=== PATIENT | female | born 1990 | race Caucasian/White ===

== ENCOUNTER 2022-06-02 10:35 | Day surgery (SDC) | payer BC, MEDICAID, SELFPAY ==
[2022-06-01 15:39] VITALS: BMI 21.4
[2022-06-02] VITALS (14 sets, daily range): BP systolic 118–161; BP diastolic 68–105; PULSE 14–76; RESP 14–18; TEMP 36.2–36.9; O2SAT 97–100
[2022-06-02 11:28] LABS: OR HCG Qualitative Urine Negative (Negative)
[2022-06-02] MEDS: scopolamine 1.5 Patch 1 PATCH TRANSDERMA (11:59)
[2022-06-02] MEDS: diphenhydrAMINE 50 mg/mL SDV 1mL 12.5 MG IVP (11:59)
[2022-06-02] MEDS: ondansetron 2 mg/ML SDV 2 mL 4 MG IVP (11:59)
[2022-06-02] MEDS: sodium chloride 0.9% 1,000 ML 30 ML IV (11:59)
--- NOTE | 2022-06-02 11:59 | ANES.PREANE2 ---
Pre-Anesthetic Assessment Height/Weight: Height 1.75 m Weight 65.771 kg Temp Pulse Resp BP Pulse Ox O2 Del Method 97.7 F 76 16 118/68 99 06/02/22 11:13 06/02/22 11:13 06/02/22 11:13 06/02/22 11:13 06/02/22 11:13 06/02/22 11:16 Preop Diagnosis: Symptomatic cholelithiasis Operation Date: 06/02/22 12:25 Proposed Procedures p Laparoscopic Cholecystectomy(Not Applicable) - Maury Duran DO Familial anesthetic complications: PONV Was Beta Hattie taken within 24 hours: N/A Was Clonidine taken within 24 hours: N/A Last intake: Intake Last Liquid Date 06/01/22 Last Liquid Time 20:30 Last Solid Date 06/01/22 Last Solid Time 17:00 Social Alcohol (socially) and Tobacco Exam alert and oriented x 3 Airway Submandibular: within normal limits Cervical ROM: within normal limits Mallampati: Class I Dentition: full History/ROS No significant history except as noted Pulmonary None reported CV/HEM None reported None reported Hepatic None reported GI Gastroesophageal Reflux Disease Metabolic None reported Musc/skel None reported Neuropsych None reported Anesthetic Plan ASA status: 2 Anesthesia: Anesthesia Evaluation and General (TIVA?) Risk of > 500 ml blood loss (7ml/kg in children): No Medications/Allergies Home Medications Medication Instructions Recorded Confirmed Last Taken Type tirzepatide 7.5 mg/0.5 mL 2.5 mg SUBCUT Q7D 05/17/22 06/01/22 05/27/22 History subcutaneous pen injector (Mounjaro) Allergies Allergy/AdvReac Type Severity Reaction Status Date / Time amoxicillin Allergy rash Verified 06/01/22 15:38 Sulfa (Sulfonamide Allergy rash Verified 06/01/22 15:38 Antibiotics) PFSH Anesthesia Surgical History Hx of breast augmentation Hx of gastric bypass Family History Denies family history of Anesthesia complication Social History Smoking and tobacco status: current every day smoker cigarettes Alcohol intake: current Alcohol intake frequency: holidays/special occasions only Data Anesthesia Cardiac Studies: No Data to Display
[2022-06-02] MEDS: vancomycin 1,000 MG in sodium chloride 0.9% 250 ML 250 MG IV (13:32)
--- NOTE | 2022-06-02 14:53 | W.PM.OPSUD ---
Surgery/Procedure H&P Update DATE OF PROCEDURE: June 02, 2022 DATE H&P PERFORMED: 05/17/22 H&P UPDATE INFORMATION: I have reviewed H&P completed within last 30 days, I have examined patient prior to procedure and No changes to prior documentation PREOP DIAGNOSIS: Symptomatic cholelithiasis PLANNED PROCEDURE: Operation Date: 06/02/22 12:25 Proposed Procedures p Laparoscopic Cholecystectomy(Not Applicable) - Maury Duran DO
[2022-06-02] MEDS: midazolam 1 mg/mL INJ 2 mL 2 MG IVP (14:57)
[2022-06-02] MEDS: lidocaine-epi 2% 20 mL INJ INJECTION (16:01)
--- NOTE | 2022-06-02 16:21 | P.OP_ITS ---
Operative Report Date of procedure: June 02, 2022 Pre-op diagnosis: Preop Diagnosis Symptomatic cholelithiasis Post-op diagnosis: same Procedure done: Laparoscopic cholecystectomy Specimens removed/disposition: Gallbladder Surgeon: Dr. Maury Duran DO Anesthesia: General Estimated blood loss (mL): 5 Complications: None apparent Brief History: This very pleasant 31-year-old female that came to my office with symptomatic cholelithiasis. Laparoscopic cholecystectomy was indicated. The risk and benefits were explained and documented. Procedure: Patient was wheeled into the operative room and placed on the OR table in a supine position. Abdomen was inspected prepped and draped in usual sterile fashion. Time-out was performed and all present were in agreement. A 15 blade scalp was used to make a stab incision in the left upper quadrant and intra- abdominal insufflation was achieved using a Veress needle. After localizing the tissue incisions were made and a 5 millimeter trocar was placed into the umbilicus as well as 2 in the right upper quadrant. A 12 millimeter trocar was placed in the epigastrium. Gallbladder was grasped and elevated. The triangle of Calot was carefully dissected using blunt dissection and electrocautery until the triangle of Calot clearly identified. The cystic duct was clipped proximally and double clipped distally. The duct was then ligated proximally. The cystic artery was doubly clipped and ligated. The gallbladder was then removed from the liver bed using electrocautery. The gallbladder was removed from the abdomen using an Endo-Catch bag through the epigastric incision. The liver bed was inspected and no bleeding was seen. The abdomen was irrigated and suctioned. All ports removed. Skin was washed and dried. Incisions were c losed with 4-0 Monocryl in a subcuticular interrupted fashion. Skin glue was applied. Patient tolerated the procedure well.
[2022-06-02] MEDS: hetastarch 30 GM/500 ML PREMIX IV (16:52)
[2022-06-02] MEDS: HYDROmorphone 1 mg/mL INJ 1 mL 0.5 MG IVP (17:10)
--- NOTE | 2022-06-02 17:20 | ANE.PACU2 ---
Inpatient post-anesthesia follow up: Airway intact: Yes Vital signs: Temperature 97.2 F Pulse Rate 57 Respiratory Rate 17 Blood Pressure 119/76 Pulse Oximetry 97 Oxygen Delivery Me thod Room Air Oxygen Flow Rate 6 Fraction of Inspir ed Oxygen Hydration adequate: Yes Nausea and vomiting: Yes Pain level: 3 Mental status: Baseline
[2022-06-02] MEDS: HYDROcodone-acetaminophen 5-325 mg Tablet 1 TAB PO (18:06)
== END 2022-06-02 18:20 | disposition home or self-care (01) ==
PROVIDERS: PCP Nurse Practitioner Family; Visit Provider Surgery
PROC: 0FT44ZZ Resection of Gallbladder, Percutaneous Endoscopic Approach (ICD-10-PCS; CPT 47562; principal; 2022-06-02 12:15)
DX: K81.1 Chronic cholecystitis (principal); K21.9 Gastro-esophageal reflux disease without esophagitis; F17.210 Nicotine dependence, cigarettes, uncomplicated; Z98.84 Bariatric surgery status; Z79.899 Other long term (current) drug therapy
CPT/HCPCS: 47562; 81025; 84703; 88304; J0330; J1100; J1170; J1200; J1790; J2250; J2405; J2704; J3010; J3370; J3490; J7030; J7050

== ENCOUNTER 2022-06-06 19:56 | Emergency (ER) | payer BC, MEDICAID, SELFPAY ==
[2022-06-06 20:04] VITALS: BP 110/55; PULSE 79; RESP 16; TEMP 36.2; O2SAT 100; BMI 23.6
[2022-06-06 20:49] LABS: Basophils % 0.3 %; Eosinophils # 0.3 10^3/uL (0.0-0.8); Eosinophils % 3.9 %; Hematocrit 28.1 % (37.0-47.0); Hemoglobin 9.1 g/dL (11.5-15.3); Lymphocytes # 2.2 10^3/uL (0.8-4.8); Lymphocytes % 32.7 %; Mean Corpuscular HGB Conc 32.4 g/dL (30.0-36.0); Mean Corpuscular Hemoglobin 31.3 pg (28.0-34.0); Mean Corpuscular Volume 96.6 fl (81-99); Mean Platelet Volume 10.8 fL (7.4-10.4); Monocytes # 0.5 10^3/uL (0.2-0.9); Monocytes % 7.2 %; Neutrophils # 3.73 10^3/uL (1.8-7.7); Neutrophils % 55.6 %; Nucleated Red Blood Cells % 0 %; Platelet Count 253 10^3/cmm (130-400); Red Blood Count 2.91 10^6/uL (4.1-5.3); Red Cell Distribution Width 14.1 % (12.1-15.1); White Blood Count 6.7 10^3/uL (4.0-10.0)
[2022-06-06 21:00] LABS: HCG, Serum Qual Negative (Negative)
[2022-06-06 21:07] LABS: Alanine Aminotransferase 16 U/L (0-33); Alkaline Phosphatase 49 U/L (35-105); Anion Gap 10.4 (5-19); Aspartate Amino Transferase 11 U/L (0-32); Blood Urea Nitrogen 8 mg/dL (6-20); Carbon Dioxide 27 mmol/L (22-29); Chloride 100 mmol/L (98-107); Globulin 1.9 g/dL (1.3-4.6); Glomerular Filtration Rate 115.9 mL/min (90-130); Glucose 84 mg/dL (65-115); Lipase 16 U/L (13-60); Osmolality Calculated 276 mOsm/kg (285-295); Potassium 3.4 mmol/L (3.5-5.1); Sodium 134 mmol/L (136-145); Total Bilirubin 0.3 mg/dL (0.15-1.2); Total Protein 5.9 g/dL (6.6-8.7)
--- NOTE | 2022-06-06 21:33 | CTR_ITS ---
PROCEDURE INFORMATION: Exam: CT Abdomen And Pelvis With Contrast Exam date and time: 06/06/2022 10:09 PM Age: 31 years old Clinical indication: Abdominal pain; Localized; Prior surgery; Surgery date: 3-7 days post-operative; Surgery type: Lap leighann 06/02/2022. Breast aug. Gastric sleeve. Iud. Patient HX: C/O of lower abd and RT pelvic pain post las leighann on 06/02/2022. ; Additional info: Abd pain TECHNIQUE: Imaging protocol: Computed tomography of the abdomen and pelvis with contrast. Radiation optimization: All CT scans at this facility use at least one of these dose optimization techniques: automated exposure control; mA and/or kV adjustment per patient size (includes targeted exams where dose is matched to clinical indication); or iterative reconstruction. Contrast material: OMNI 350; Contrast volume: 100 ml; Contrast route: INTRAVENOUS (IV); REPORTING DATA: Count of CT and Cardiac NM exams in prior 12 months: This patient has received 0 known CTs and 0 known cardiac nuclear medicine studies in the 12 months prior to the current study. COMPARISON: No relevant prior studies available. RADIATION DOSE METRICS: Total DLP (mGy-cm): 543.65 FINDINGS: Liver: Normal. No mass. Gallbladder and bile ducts: Cholecystectomy. Pancreas: Normal. No ductal dilation. Spleen: Normal. No splenomegaly. Adrenal glands: Normal. No mass. Kidneys and ureters: Normal. No hydronephrosis. Stomach and bowel: Prominent fluid in the small bowel without dilation may reflect an enteritis. Appendix: No evidence of appendicitis. Intraperitoneal space: Small to moderate amount of free air in the abdomen and pelvis may be postsurgical in nature, please correlate clinically. Vasculature: Unremarkable. No abdominal aortic aneurysm. Lymph nodes: Unremarkable. No enlarged lymph nodes. Urinary bladder: Unremarkable as visualized. Reproductive: IUD in the uterine cavity. Bones/joints: Unremarkable. No acute fracture. Soft tissues: Right lower abdominal wall subcutaneous edema likely postsurgical in nature. Other findings: Small to moderate amount of somewhat hyperdense fluid in the deep pelvis may be postsurgical in nature and possibly contain blood products, negative for active contrast extravasation to indicate a source of bleeding, infection of the fluid is not excluded. CT/CT abdomen pelvis w con* [id number] IMPRESSION: 1. Small to moderate amount of free air in the abdomen and pelvis may be postsurgical in nature, please correlate clinically. 2. IUD in the uterine cavity. 3. Cholecystectomy. 4. Prominent fluid in the small bowel without dilation may reflect an enteritis. 5. Small to moderate amount of somewhat hyperdense fluid in the deep pelvis may be postsurgical in nature and possibly contain blood products, negative for active contrast extravasation to indicate a source of bleeding, infection of the fluid is not excluded. 6. Right lower abdominal wall subcutaneous edema likely postsurgical in nature.
--- NOTE | 2022-06-06 21:40 | W.ED.ABDPA2 ---
HPI - Abdominal Pain General: Chief Complaint: Abdominal Pain Stated Complaint: swelling abdomen post gallbladder surgery Time Seen by Provider: 06/06/22 20:45 Source: patient Mode of arrival: ambulatory Limitations: no limitations History of Present Illness: 31-year-old female who had a cholecystectomy on states she has been having some right lower quadrant abdominal pain over the last 1 to 2 days states she noticed some bruising and swelling over her abdomen as well. She rates her pain 8 out of 10 denies any vomiting diarrhea denies any fever she denies any worsening improving factors. Associated Symptoms: Denies chills, dysuria and fever(s) Review of Systems Const: Denies: fever(s), chills, body aches or change in appetite Eyes: Denies: blurry vision or eye discomfort ENMT: Denies: throat pain or dental pain Card: Denies: chest pain Resp: Denies: dyspnea GI: Reports: abdominal pain : Denies: dysuria Musc: Denies: neck pain or back pain Skin/Breast: Denies: rash Neuro: Denies: headache(s) Psych: Denies: depression Rajesh/Lymph: Denies: easy bruising All/Imm: Denies: urticaria PFSH ED PFSH: Surgical History Hx of breast augmentation Hx of gastric bypass Family History Denies family history of Anesthesia complication Social History Smoking and tobacco status: current every day smoker cigarettes Alcohol intake: current Alcohol intake frequency: holidays/special occasions only Physical Exam Const: COMMON NORMALS: no acute distress, patient oriented x3 and healthy appearing HENMT: COMMON NORMALS: normocephalic and atraumatic HEAD & SCALP: normocephalic and atraumatic Eye: COMMON NORMALS: Equal, round and reactive pupils present and EOMs intact bilaterally PUPIL: Yes Equal, round and reactive pupils present Neck/C-Spine: COMMON NORMALS: full ROM and supple Chest: COMMONS NORMALS: normal inspection of the chest and normal palpation of entire chest wall Resp: COMMON NORMALS: normal respiratory effort, No retractions, No use of accessory muscles and clear to auscultation bilaterally AUSCULTATION: clear to auscultation bilaterally Cardio: COMMON NORMALS: regular rate, regular rhythm and No murmurs present (Cardio) RATE: regular rate RHYTHM: regular rhythm GI: COMMON NORMALS: Normal to inspection, nondistended, normoactive bowel sounds present, Soft to palpation and no masses PALPATION: Yes Soft to palpation and Yes Tenderness to palpation present (GI) Details: RLQ Extremity: COMMON NORMALS: normal to inspection and full ROM Neuro: COMMON NORMALS: patient oriented x3, moves all extremities and no focal motor deficits Psych: COMMON NORMALS: mental status grossly normal, Normal thought process present and cooperative THOUGHT PROCESS: Normal thought process present Skin: COMMON NORMALS: no rashes or lesions noted and no wounds GENERAL SKIN EXAM: no rashes or lesions noted Course Vital Signs: Vital signs: Vital Signs Temperature 97.1 F L 06/06/22 20:04 Pulse Rate 95 06/06/22 21:52 Respiratory Rate 16 06/06/22 21:52 Blood Pressure 110/55 06/06/22 20:04 Pulse Oximetry 99 06/06/22 21:52 Oxygen Delivery Me thod 06/06/22 21:52 MDM - Abdominal Pain Medical Decision Making Patient presents here with abdominal pain likely postop pain she did have a slight fluid area in her CT no signs of active bleeding her blood work here is normal no signs of infection she is well-appearing here exam is benign she is to follow-up with her surgeon Dr. Duran return if worsening. Lab Data 06/06/22 20:28 06/06/22 20:28 Labs/Radiology: Radiology Impressions Abdomen/Pelvis CT 06/06/22 21:33 IMPRESSION: 1. Small to moderate amount of free air in the abdomen and pelvis may be postsurgical in nature, please correlate clinically. 2. IUD in the uterine cavity. 3. Cholecystectomy. 4. Prominent fluid in the small bowel without dilation may reflect an enteritis. 5. Small to moderate amount of somewhat hyperdense fluid in the deep pelvis may be postsurgical in nature and possibly contain blood products, negative for active contrast extravasation to indicate a source of bleeding, infection of the fluid is not excluded. 6. Right lower abdominal wall subcutaneous edema likely postsurgical in nature. ADDENDUM: 06/06/22 [id number] THIS REPORT CONTAINS FINDINGS THAT MAY BE CRITICAL TO PATIENT CARE. The findings were verbally communicated via telephone conference with YESICA MENDEZ at 11:17 PM CDT on 06/06/2022. The findings were acknowledged and understood. Laboratory Results WBC 6.7 10^3/uL (4.0-10.0) 06/06/22 20: RBC 2.91 10^6/uL (4.1-5.3) L 06/06/22 20: Hgb 9.1 g/dL (11.5-15.3) L 06/06/22: Hct 28.1 % (37.0-47.0) L 06/06/22: MCV 96.6 fl (81-99) 06/06/22: MCH 31.3 pg (28.0-34.0) 06/06/22: MCHC 32.4 g/dL (30.0-36.0) 06/06/22: RDW 14.1 % (12.1-15.1) 06/06/22: Plt Count 253 10^3/cmm (130-400) 06/06/22: MPV 10.8 fL (7.4-10.4) H 06/06/22: Neut % (Auto) 55.6 % 06/06/22: Lymph % (Auto) 32.7 % 06/06/22 20: [place] % (Auto) 7.2 % 06/06/22: Eos % (Auto) 3.9 % 06/06/22: Baso % (Auto) 0.3 % 06/06/22: Neut # (Auto) 3.73 10^3/uL (1.8-7.7) 06/06/22: Lymph # (Auto) 2.2 10^3/uL (0.8-4.8) 06/06/22: [place] # (Auto) 0.5 10^3/uL (0.2-0.9) 06/06/22 20: Eos # (Auto) 0.3 10^3/uL (0.0-0.8) 06/06/22 20: Baso # (Auto) 0.0 10^3/uL (0.0-0.1) 06/06/22 20: Nucleated RBC % (auto) 0 % 06/06/22 20: Nucleated RBCs # 0.0 /100WBC 06/06/22 20: Sodium 134 mmol/L (136-145) L 06/06/22 20: Potassium 3.4 mmol/L (3.5-5.1) L 06/06/22 20: Chloride 100 mmol/L (98-107) 06/06/22 20: Carbon Dioxide 27 mmol/L (22-29) 06/06/22 20: Anion Gap 10.4 (5-19) 06/06/22 20: BUN 8 mg/dL (6-20) 06/06/22 20: Creatinine 0.6 mg/dL (0.5-0.9) 06/06/22 20: GFR Calculation 115.9 mL/min (90-130) 06/06/22 20: Glucose 84 mg/dL (65-115) 06/06/22 20: Calculated Osmolality 276 mOsm/kg (285-295) L 06/06/22 20: Calcium 9.0 mg/dL (8.5-10.5) 06/06/22 20: Total Bilirubin 0.3 mg/dL (0.15-1.2) 06/06/22 20: AST 11 U/L (0-32) 06/06/22 20: ALT 16 U/L (0-33) 06/06/22 20: Alkaline Phosphatase 49 U/L (35-105) 06/06/22 20: Total Protein 5.9 g/dL (6.6-8.7) L 06/06/22 20: Albumin 4.0 g/dL (3.5-5.2) 06/06/22 20: Globulin 1.9 g/dL (1.3-4.6) 06/06/22 20: Lipase 16 U/L (13-60) 06/06/22 20: HCG, Qual Negative (Negative) 06/06/22 20: Urine Color Yellow (Yellow) 06/06/22 23:30 Urine Appearance Clear (CLEAR) 06/06/22 23: Urine pH 8 (5-7) H 06/06/22 23:30 Ur Specific [place] 1.015 (1.005-1.030) 06/06/22 23:30 Urine Protein Neg (Negative) 06/06/22 23:30 Urine Glucose (UA) Norm (Normal) 06/06/22 23:30 Urine Ketones Negative (Negative) 06/06/22 23:30 Urine Blood 2+ (Negative) H 06/06/22 23:30 Urine Nitrate Negative (Negative) 06/06/22 23:30 Urine Bilirubin Neg (Negative) 06/06/22 23:30 Urine Urobilinogen Norm mg/dL (Negative) 06/06/22 23:30 Ur Leukocyte Esterase Negative (Negative) 06/06/22 23:30 Urine RBC 0-4 /hpf (0-2) H 06/06/22 23:30 Urine WBC 0-4 /hpf (0-5) H 06/06/22 23:30 Ur Squamous Epith Cells 0-4 /hpf (0-5) H 06/06/22 23:30 Amorphous Sediment Not Reportable 06/06/22 23:30 Urine Bacteria Trace /hpf (NONE) 06/06/22 23:30 Discharge Plan Discharge Patient Disposition: Home Clinical Impression: Abdominal pain Condition: Stable Prescriptions: New hydrocodone-acetaminophen 5-325 mg tablet 1 tab PO Q6H PRN (Reason: pain) Qty: 14 0RF ondansetron 4 mg tablet,disintegrating 4 mg PO Q6H PRN (Reason: nausea and vomiting) Qty: 14 0RF No Action Mounjaro 7.5 mg/0.5 mL pen injector 2.5 mg SUBCUT Q7D hydrocodone-acetaminophen 5-325 mg tablet 1 tab PO Q6H PRN (Reason: pain) Qty: 20 0RF DOK 100 mg capsule 100 mg PO BID Qty: 14 0RF Discharge Orders: Discharge ED (Routine); Ordered 06/07/22 Ordered By: Yesica Mendez Referrals: Maury Duran DO [Physician] - 1-3 days Suzan Bang [Primary Care Provider] - Discharge Diet: Advance as tolerated Discharge Activity: Resume usual activity Patient Instructions: Abdominal Pain (ED) Coding Level of Care Code ED Ticket Agent for Geraldg Rodolfo
[2022-06-06] MEDS: ondansetron 2 mg/ML SDV 2 mL 4 MG IVP (21:47)
[2022-06-06 21:48] VITALS: RESP 16
[2022-06-06] MEDS: morphine 4 mg/mL SDV 1 mL IVP (21:48)
[2022-06-06 21:52] VITALS: PULSE 95; RESP 16; O2SAT 96; O2SAT 99
[2022-06-06] MEDS: sodium chloride 0.9% 1,000 ML 999 ML IV (21:56)
[2022-06-06] MEDS: iohexol 350 mg/mL 500 mL Btl (per mL) IV (22:12)
[2022-06-06 23:51] LABS: Bilirubin Urine Neg (Negative); Blood Urine 2+ (Negative); Glucose Urine UA Norm (Normal); Ketones Urine Negative (Negative); Nitrate Urine Negative (Negative); Protein Urine Neg (Negative); Specific Gravity, Urine 1.015 (1.005-1.030); Urine Appearance Clear (CLEAR); Urine Color Yellow (Yellow); pH Urine 8 (5-7)
[2022-06-06 23:52] LABS: Add Urine Culture? No; Add Urine Microscopic? YES; Bacteria Urine TRACE /hpf; Leukocyte Esterase Urine Negative (Negative); RBC Urine 0-4 /hpf (0-2); Squamous Epithelial Cell Urine 0-4 /hpf (0-5); Urobilinogen Urine Norm (Negative); WBC Urine 0-4 /hpf (0-5)
[2022-06-07 00:08] VITALS: BP 128/73; PULSE 69; RESP 16; O2SAT 99
== END 2022-06-07 00:08 | disposition home or self-care (01) ==
PROVIDERS: Emergency Provider Emergency Medicine; PCP Nurse Practitioner Family
DX: R10.31 Right lower quadrant pain (principal); F17.210 Nicotine dependence, cigarettes, uncomplicated
CPT/HCPCS: 36415; 74177; 80053; 81001; 83690; 84703; 85025; 96361; 96374; 96375; 99285; J2270; J2405; J7030; Q9967

== ENCOUNTER → 2024-09-02 09:35 | Outpatient (BNVA) | payer MEDICAID, SELFPAY | PROVIDERS: PCP Nurse Practitioner Family | DX: Q79.9 Congenital malformation of musculoskeletal system, unspecified (principal); M54.2 Cervicalgia; M25.519 Pain in unspecified shoulder | CPT/HCPCS: 73030 ==

== ENCOUNTER → 2024-09-03 14:45 | Outpatient (BNVA) | payer MEDICAID, SELFPAY | PROVIDERS: PCP Nurse Practitioner Family; Visit Provider Orthopaedic Surgery | DX: M54.2 Cervicalgia (principal); M25.511 Pain in right shoulder | CPT/HCPCS: 72050 ==